=== PATIENT | female | born 1980 | race Caucasian/White ===

== ENCOUNTER 2016-07-06 14:12 | Outpatient (RCR) | payer OTHER ==
[~2016-07-06 14:12] MED LIST changes: -PRINIVIL20 MG PO
[2016-07-15] MEDS ORDERED: PRINIVIL20 MG PO (16:31)
[2016-07-15] MEDS ORDERED: PRINZIDE 12.5 M1 TA1 PO (17:54)
[2016-07-15] MEDS ORDERED: NORCO 325 MG-51 TAB PO (17:54)
== END 2016-09-01 10:51 ==
LOC: WSOH 14:12
DX: S61.303A Unspecified open wound of left middle finger with damage to nail, initial encounter (principal); W27.5XXA Contact with paper-cutter, initial encounter; Y99.0 Civilian activity done for income or pay

== ENCOUNTER → 2016-07-06 | Outpatient (REF) ==
[~2016-07-06] MED LIST: BACTRIM PO; CLEOCIN HC150 MG/CAP PO; HCTZ 25MG TAB25 MG PO; LEVAQUIN 5500 MG/TA1 PO; LOPRESSOR 550 MG/TAB PO; NO HOME MEDICATIONS; NORCO 325 MG-51 TAB PO; PERCOCET 325 MG1 TA2 PO; PERCR 7.5 PO; PHENERGAN 25 TA25 MG PO; PHENERGAN W/CO120 ML PO; PREDNISONE20 MG PO; PRENATAL VITAMI1 TA5 PO; PRINIVIL10 MG PO; PRINIVIL20 MG PO; PRINZIDE 12.5 M1 TA1 PO; PROAIR HFA0.09 MG/AC IH; ZANTAC 150MG T150 MG PO; ZITHROMAX 250M250 MG PO
== END ==
LOC: WSOH 14:14
DX: Z01.89 Encounter for other specified special examinations (principal)

== ENCOUNTER 2016-07-15 16:17 | Emergency (ER) | payer BC, OTHER ==
[~2016-07-15] VITALS: Ht 180.3 cm; Wt 181.8 kg
[2016-07-15 16:28] VITALS: TEMP 99.7
[2016-07-15] MEDS ORDERED: PRINIVIL20 MG PO (16:31)
[2016-07-15] MEDS ORDERED: PRINZIDE 12.5 M1 TA1 PO (17:54)
[2016-07-15] MEDS ORDERED: NORCO 325 MG-51 TAB PO (17:54)
[2016-07-15 18:37] VITALS: BP 189/110; PULSE 62
== END 2016-07-15 18:38 | disposition home or self-care (01) ==
LOC: COL.ER 16:17
DX: M25.562 Pain in left knee (principal); I10 Essential (primary) hypertension; E66.01 Morbid (severe) obesity due to excess calories; Z68.43 Body mass index [BMI] 50.0-59.9, adult

== ENCOUNTER 2017-07-01 12:14 | Emergency (ER) | payer BC ==
[~2017-07-01] VITALS: Ht 180.3 cm; Wt 185.0 kg
[~2017-07-01 12:14] MED LIST changes: +PRINIVIL20 MG PO
[2017-07-01 12:24] VITALS: TEMP 98.5
[2017-07-01] MEDS ORDERED: PRINZIDE 25 MG-1 TAB PO (12:27)
[2017-07-01 13:21] LABS: BASO % 0.5 % (0.0-2.0); EOS # 0.2 (0.0-0.7); EOS % 2.9 % (0-4.0); GRAN # 5.3 (1.4-6.5); GRAN % 63.5 % (42.2-75.2); HEMATOCRIT 38.6 % (37.0-47.0); LYMPH # 2.2 (1.2-3.4); LYMPH % 25.6 % (20.0-51.0); MEAN CELL VOLUME 82 fl (80.0-100.0); MEAN CORPUSCULAR HEMOGLOBIN 26 pg (27.0-31.0); MEAN CORPUSCULAR HGB CONC 31 g/dl (33.0-37.0); MEAN PLATELET VOLUME 9.7 fl (7.4-10.4); MONO # 0.6 (0.1-0.6); MONO % 7.3 % (1.7-9.3); PLATELET COUNT 377 K/mm3 (130-400); REDCELL DISTRIBUTION WIDTH-CV 14.4 % (11.5-14.5)
[2017-07-01 13:21] LABS: COLLECTION METHOD CLEAN CATCH
[2017-07-01 13:24] LABS: ALBUMIN 4.6 gm/dL (3.5-5.0); BILIRUBIN,TOTAL 0.5 mg/dL (0.0-1.0); CALCIUM 10.3 mg/dL (8.4-10.2); CREATININE, serum 0.67 mg/dL (0.52-1.25); POTASSIUM 4.4 mmol/L (3.4-5.0); TOTAL PROTEIN 7.7 gm/dL (6.4-8.2)
[2017-07-01 13:33] VITALS: BP 168/107
[2017-07-01 13:51] LABS: PH 5 (5-8); URINE APPEARANCE Clear; URINE BILIRUBIN Negative (NEGATIVE); URINE BLOOD Negative (NEGATIVE); URINE COLOR Yellow; URINE GLUCOSE Negative (NEGATIVE); URINE KETONE Negative (NEGATIVE); URINE LEUKOCYTE ESTERASE Negative (NEGATIVE); URINE NITRATE Negative (NEGATIVE); URINE PROTEIN(semi-quant) 1+ (NEGATIVE); URINE UROBILINOGEN Negative (NEGATIVE)
[2017-07-01 14:35] VITALS: PULSE 80
== END 2017-07-01 14:35 | disposition home or self-care (01) ==
LOC: COL.ER 12:14
PROVIDERS: Nurse Practitioner
DX: R10.13 Epigastric pain (principal); I10 Essential (primary) hypertension; E66.9 Obesity, unspecified; Z90.49 Acquired absence of other specified parts of digestive tract

== ENCOUNTER 2017-12-26 20:07 | Emergency (ER) | payer BC ==
[~2017-12-26 20:07] MED LIST changes: +PRINZIDE 25 MG-1 TAB PO
[2017-12-26 20:10] VITALS: TEMP 98.2
[2017-12-26 20:43] LABS: BASO # 0.1 (0.0-0.2); BASO % 0.6 % (0.0-2.0); EOS # 0.2 (0.0-0.7); EOS % 2.3 % (0-4.0); GRAN # 6.8 (1.4-6.5); GRAN % 63.4 % (42.2-75.2); HEMATOCRIT 37.4 % (37.0-47.0); HEMOGLOBIN 11.9 g/dl (12.5-16.0); LYMPH # 2.7 (1.2-3.4); LYMPH % 25.4 % (20.0-51.0); MEAN CELL VOLUME 77 fl (80.0-100.0); MEAN CORPUSCULAR HEMOGLOBIN 24 pg (27.0-31.0); MEAN CORPUSCULAR HGB CONC 32 g/dl (33.0-37.0); MEAN PLATELET VOLUME 9.6 fl (7.4-10.4); MONO # 0.9 (0.1-0.6); PLATELET COUNT 374 K/mm3 (130-400); RED BLOOD COUNT 4.87 M/mm3 (4.10-5.30)
[2017-12-26 20:53] LABS: ALANINE AMINOTRANSFERASE 18 U/L (9-52); ALBUMIN 4.4 gm/dL (3.5-5.0); ALKALINE PHOSPHATASE 60 U/L (50-136); ANION GAP 15 mmol/L (7-16); AST,SGOT 17 U/L (15-37); BILIRUBIN,TOTAL 0.3 mg/dL (0.0-1.0); BLOOD UREA NITROGEN 14 mg/dL (7-17); CALCIUM 8.9 mg/dL (8.4-10.2); CARBON DIOXIDE 23 mmol/L (22-30); CHLORIDE 101 mmol/L (98-107); CREATININE, serum 0.82 mg/dL (0.52-1.25); GLUCOSE 102 mg/dL (74-106); POTASSIUM 3.4 mmol/L (3.4-5.0); SODIUM 140 mmol/L (137-145); TOTAL PROTEIN 7.8 gm/dL (6.4-8.2)
[2017-12-26] MEDS ORDERED: NORVASC 5MG5 MG/TAB PO (21:04)
[2017-12-26 21:08] LABS: TROPONIN-I < 0.012 ng/mL (0.000-0.034)
[2017-12-26] MEDS ORDERED: TOPROL XL 50MG50 MG PO (21:40)
[2017-12-26 21:53] VITALS: BP 148/100; PULSE 87
== END 2017-12-26 22:14 | disposition home or self-care (01) ==
LOC: COL.ER 20:07
PROVIDERS: Emergency Medicine
DX: R00.1 Bradycardia, unspecified (principal); I10 Essential (primary) hypertension; E66.9 Obesity, unspecified; Z87.891 Personal history of nicotine dependence

== ENCOUNTER → 2018-01-10 | Outpatient (CLI) | payer BC ==
[~2018-01-10] MED LIST changes: +NORVASC 5MG5 MG/TAB PO; +TOPROL XL 50MG50 MG PO
== END ==
LOC: COL.RAD 14:14
DX: R07.9 Chest pain, unspecified (principal); G89.29 Other chronic pain; R91.8 Other nonspecific abnormal finding of lung field
CPT/HCPCS: Q9967

== ENCOUNTER → 2019-12-31 | Outpatient (CLI) | payer BC | LOC: COL.RAD 07:48 | DX: R93.89 Abnormal findings on diagnostic imaging of other specified body structures (principal); N93.9 Abnormal uterine and vaginal bleeding, unspecified ==

== ENCOUNTER 2020-03-31 09:42 | Emergency (ER) | payer BC ==
[~2020-03-31] VITALS: Ht 180.3 cm; Wt 184.5 kg
[2020-03-31 09:50] VITALS: TEMP 97.7
[2020-03-31] MEDS ORDERED: SYNTHROID0.05 MG/TA PO (09:59)
[2020-03-31] MEDS ORDERED: NAPROSYN500 MG PO (11:24)
[2020-03-31] MEDS ORDERED: NORCO 325 MG-51 TAB PO (11:24)
[2020-03-31] MEDS ORDERED: PREDNISONE20 MG PO (11:24)
[2020-03-31 11:43] VITALS: BP 173/91; PULSE 64
== END 2020-03-31 11:43 | disposition home or self-care (01) ==
LOC: COL.ER 09:42
DX: M25.512 Pain in left shoulder (principal); Z88.1 Allergy status to other antibiotic agents; Z87.891 Personal history of nicotine dependence